=== PATIENT | female | born 1985 | race Two or more races ===

== ENCOUNTER 2020-02-04 04:00 | Inpatient (IN) | payer SELFPAY ==
[~2020-02-04] VITALS: Ht 149.9 cm; Wt 52.6 kg
[~2020-02-04 04:00] MED LIST: ACET325T9 PO; FAMO20TA5 PO; PROC10TA57 PO; TRAM-48 PO
[2020-02-04] MEDS ORDERED: OXYTOCIN 30 UNIT/500 ML PREMIX 500 ML IV ONE (04:44)
[2020-02-04] MEDS ORDERED: LIDOCAINE 1% PF 30 ML VIAL. ONE (04:44)
[2020-02-04 04:46] VITALS: BP 117/58
[2020-02-04] MEDS ORDERED: OXYTOCIN 30 UNIT/500 ML PREMIX 500 ML IV PRN ×2 (05:00)
[2020-02-04] MEDS ORDERED: ONDANSETRON PF 4 MG/2 ML VIAL. IVP PRN (05:00)
[2020-02-04] MEDS ORDERED: 0.9 % SODIUM CHLORIDE 10 ML DISP.SYRIN. IV PRN (05:00)
[2020-02-04] MEDS ORDERED: TERBUTALINE 1 MG/ML VIAL. SQ PRN (05:00)
[2020-02-04] MEDS ORDERED: CITRIC ACID/SODIUM CITRATE 30 ML SOLUTION. PO PRN (05:00)
[2020-02-04] MEDS ORDERED: LIDOCAINE 1% PF 30 ML VIAL. INJ PRN (05:00)
[2020-02-04] MEDS ORDERED: ACETAMINOPHEN 325 MG TABLET. PO PRN (05:00)
[2020-02-04] MEDS ORDERED: IV RINGERS,LACTATED 1000ML 1,000 ML IV SCH (05:00)
[2020-02-04 05:06] LABS: BASO % 0 % (0-3); EOS % 0 % (0-3); HEMATOCRIT 37.5 % (36.0-47.0); LYMPH # 1.6 x10^3/uL (1.0-4.8); LYMPH % 14 % (24-48); MEAN CORPUSCULAR HEMOGLOBIN 31 pg (25-35); MEAN CORPUSCULAR HGB CONC 35 g/dL (31-37); MEAN CORPUSCULAR VOLUME 89 fL (79-100); MONO # 0.9 x10^3/uL (0.0-1.1); MONO % 8 % (0-9); NEUT % 78 % (31-73); PLATELET COUNT 382 x10^3/uL (140-400); RED BLOOD COUNT 4.24 x10^6/uL (3.50-5.40); RED CELL DISTRIBUTION WIDTH 13.9 % (11.5-14.5); WHITE BLOOD COUNT 11.5 x10^3/uL (4.0-11.0)
[2020-02-04 05:11] LABS: BILIRUBIN,URINE NEGATIVE (NEG); CLARITY,URINE CLOUDY; COLOR,URINE YELLOW; NITRITE,URINE NEGATIVE (NEG); PROTEIN,URINE NEGATIVE (NEG-TRACE); UROBILINOGEN,URINE 0.2 mg/dL (0.2 mg/dL)
[2020-02-04 05:18] LABS: BARBITURATES NEG (NEG); BENZODIAZEPINES NEG (NEG); CANNABINOIDS NEG (NEG); COCAINE NEG (NEG); METHADONE NEG (NEG); OPIATES NEG (NEG); PHENCYCLIDINE NEG (NEG)
[2020-02-04 05:19] LABS: BACTERIA,URINE MANY /HPF (0-FEW); RBC,URINE OCC /HPF (0-2); WBC,URINE TNTC /HPF (0-4)
[2020-02-04 05:29] LABS: AMPHETAMINE/METHAMPHETAMINE NEG (NEG)
[2020-02-04] MEDS ORDERED: AMPICILLIN SODIUM 2 GM in IV NORMAL SALINE 100ML 100 ML IV ONE (06:00)
--- NOTE | 2020-02-04 06:28 | PDOC ---
GENERAL General: 34yrs old lady EDC 02/15/20 Admitted to Hospital with Contractions. ALLERGIES Allergies: Allergies Coded Allergies Type Severity Reaction Last Updated Verified No Known Drug Allergies 08/28/15 No LAB Lab: Laboratory Tests Test 02/04/20 04:40 02/04/20 04:45 Urine Collection Type Unknown Urine Color Yellow Urine Clarity Cloudy Urine pH 7.0 (<5.0-8.0) Urine Specific Hooper 1.010 (1.000-1.030) Urine Protein Negative mg/dL (NEG-TRACE) Urine Glucose (UA) Negative mg/dL (NEG) Urine Ketones (Stick) Negative mg/dL (NEG) Urine Blood Trace (NEG) Urine Nitrite Negative (NEG) Urine Bilirubin Negative (NEG) Urine Urobilinogen Dipstick 0.2 mg/dL (0.2 mg/dL) Urine Leukocyte Esterase Large (NEG) Urine RBC Occ /HPF (0-2) Urine WBC Tntc /HPF (0-4) Urine Squamous Epithelial Cells Mod /LPF Urine Bacteria Many /HPF (0-FEW) Urine Mucus Slight /LPF Urine Opiates Screen Neg (NEG) Urine Methadone Screen Neg (NEG) Urine Barbiturates Neg (NEG) Urine Phencyclidine Screen Neg (NEG) Urine Amphetamine/Methamphetamine Neg (NEG) Urine Benzodiazepines Screen Neg (NEG) Urine Cocaine Screen Neg (NEG) Urine Cannabinoids Screen Neg (NEG) Urine Ethyl Alcohol Neg (NEG) White Blood Count 11.5 x10^3/uL (4.0-11.0) H Red Blood Count 4.24 x10^6/uL (3.50-5.40) Hemoglobin 13.0 g/dL (12.0-15.5) Hematocrit 37.5 % (36.0-47.0) Mean Corpuscular Volume 89 fL (79-100) Mean Corpuscular Hemoglobin 31 pg (25-35) Mean Corpuscular Hemoglobin Concent 35 g/dL (31-37) Red Cell Distribution Width 13.9 % (11.5-14.5) Platelet Count 382 x10^3/uL (140-400) Neutrophils (%) (Auto) 78 % (31-73) H Lymphocytes (%) (Auto) 14 % (24-48) L Monocytes (%) (Auto) 8 % (0-9) Eosinophils (%) (Auto) 0 % (0-3) Basophils (%) (Auto) 0 % (0-3) Neutrophils # (Auto) 9.0 x10^3/uL (1.8-7.7) H Lymphocytes # (Auto) 1.6 x10^3/uL (1.0-4.8) Monocytes # (Auto) 0.9 x10^3/uL (0.0-1.1) Eosinophils # (Auto) 0.0 x10^3/uL (0.0-0.7) Basophils # (Auto) 0.0 x10^3/uL (0.0-0.2) Platelet Estimate Pending Laboratory Tests 02/04/20 04:45 ASSESSMENT & PLAN A&P 34 yrs old Lady admitted to Hospital as Patient in Active Labor Almost Complete Dilatation of Cervix. Pt had Vaginal delivery. Justifications for Admission Other Justification CHEN MARTINEZ MD Feb 04, 2020 06:27
[2020-02-04] MEDS ORDERED: DOCUSATE SODIUM 100 MG CAPSULE. PO PRN (06:30)
[2020-02-04] MEDS ORDERED: PHENYLEPH/MINERAL OIL/PETROLAT RECTAL OINTMENT TUBE. RC PRN (06:30)
[2020-02-04] MEDS ORDERED: SIMETHICONE 80 MG TAB.CHEW PO PRN (06:30)
[2020-02-04] MEDS ORDERED: ZOLPIDEM 5 MG TABLET. PO PRN (06:30)
[2020-02-04] MEDS ORDERED: MAGNESIUM HYDROXIDE 2,400 MG/30 ML ORAL.SUSP. PO PRN (06:30)
[2020-02-04] MEDS ORDERED: MAG HYDROX/ALUMINUM HYD/SIMETH 30 ML ORAL.SUSP PO PRN (06:30)
[2020-02-04] MEDS ORDERED: TDaP (Adacel) per PROTOCOL. MC PRN (06:30)
[2020-02-04] MEDS ORDERED: MMR per PROTOCOL. MC PRN (06:30)
[2020-02-04] MEDS ORDERED: diphenhydrAMINE HCL 25 MG CAPSULE PO PRN (06:30)
--- NOTE | 2020-02-04 07:02 | OP ---
DATE OF SURGERY: DELIVERY NOTE This patient is a 34-year-old Frisian lady who is a 2, para 1, EDC 02/15/2020. Came into the hospital with a history of contractions and also the patient in active labor. At the time of admission to the hospital, her cervix was dilated to complete dilatation and vertex presenting. heart tones were 140 per minute and she did have spontaneous vaginal delivery. A live infant delivered at 6:08 a.m. with the score of 8, 9 and 9 without any problem. The baby weighed 5 pounds 7 ounces. Cord blood was taken. Placenta removed spontaneous. No hemorrhage noted. She did receive Pitocin after delivery of the placenta. There was a small superficial laceration of the vulvar area and this was sutured with 2-0 chromic catgut sutures. Estimated blood loss about 100 mL. Mother tolerated the delivery well. No complications at this time. The baby is referred to ble[facility] for further care and treatment. CHEN MARTINEZ MD DR: TORO/hope JOB#: [id number] / [id number]
[2020-02-04 08:00] VITALS: BP 100/52
[2020-02-04 08:10] LABS: % ATYL 1 % (0-0); % BANDS 1 % (0-9); % LYMPHS 14 % (24-48); % MONOS 7 % (0-10); % SEGS 77 % (35-66)
[2020-02-04 08:11] LABS: PLT ESTIMATE ADEQUATE (ADEQUATE)
[2020-02-04 13:00] VITALS: BP 102/54
[2020-02-04] MEDS: IBUPROFEN 400 MG TABLET. PO PRN (15:00)
[2020-02-04 15:20] VITALS: BP 96/61
[2020-02-04] MEDS ORDERED: FLU VACC QS 2020-21(6MOS+)/PF 0.5 ML SYRINGE. VAX IM ONE (19:00)
[2020-02-04 19:15] VITALS: BP 102/63
[2020-02-05 01:00] VITALS: BP 98/57
[2020-02-05 06:00] VITALS: BP 93/52
[2020-02-05] MEDS ORDERED: FERROUS SULFATE 325 MG TABLET. PO SCH (08:00)
[2020-02-05] MEDS ORDERED: FLU VACC QS 2020-21(6MOS+)/PF 0.5 ML SYRINGE. VAX IM ONE (09:15)
[2020-02-05 11:39] VITALS: BP 96/61
--- NOTE | 2020-02-05 13:18 | PDOC ---
GENERAL General: Patient doing ok No Problems. VITAL SIGNS Vital Signs/I&O: Vital Signs Date Time Temp Pulse Resp B/P (MAP) Pulse Ox O2 Delivery O2 Flow Rate FiO2 02/05/20 11:39 98.1 83 20 96/61 (73) 99 98.1 02/05/20 06:00 Room Air ALLERGIES Allergies: Allergies Coded Allergies Type Severity Reaction Last Updated Verified No Known Drug Allergies 08/28/15 No LAB Lab: Laboratory Tests Test 02/05/20 07:17 Hematocrit 32.6 % (36.0-47.0) L Laboratory Tests 02/05/20 07:17 ASSESSMENT & PLAN A&P Vital signs stable. Uterus firm. Lochia Normal. Plan Dismissal in AM tomorrow. Justifications for Admission Other Justification CHEN MARTINEZ MD Feb 05, 2020 13:17
[2020-02-05 17:04] VITALS: BP 92/60
[2020-02-05 22:11] VITALS: BP 106/62
[2020-02-06 05:16] VITALS: BP 98/56
--- NOTE | 2020-02-06 08:48 | PDOC ---
GENERAL General: Patient doing ok. No problems. VITAL SIGNS Vital Signs/I&O: Vital Signs Date Time Temp Pulse Resp B/P (MAP) Pulse Ox O2 Delivery O2 Flow Rate FiO2 02/06/20 05:16 97.9 74 16 98/56 (70) 96 Room Air 97.9 ALLERGIES Allergies: Allergies Coded Allergies Type Severity Reaction Last Updated Verified No Known Drug Allergies 08/28/15 No ASSESSMENT & PLAN A&P Vital signs stable. Patient will go homw today. Justifications for Admission Other Justification CHEN MARTINEZ MD Feb 06, 2020 08:48
[2020-02-06] MEDS: IBUPROFEN 400 MG TABLET. PO PRN (09:05)
[2020-02-06 14:25] VITALS: BP 101/56
--- NOTE | 2020-02-12 15:12 | HP ---
ADMIT DATE: 02/04/2020 CHIEF COMPLAINT AND HISTORY OF PRESENT ILLNESS: This patient is a 34-year-old [place] lady who is a 2, para 1, EDC 02/15/2020, seen in [facility] and came into the hospital with a history of having contractions and the patient in active labor and at the time of admission to the hospital, she was completely dilated cervix. PHYSICAL EXAMINATION: VITAL SIGNS: Being stable. HEAD, EYES, NOSE, THROAT: Within normal limits. LUNGS: Clear. HEART: Sounds regular sinus rhythm. ABDOMEN: Soft, term size uterus. heart tones are 140 per minute, vertex presenting. PELVIC: Showed cervix about almost completely dilated and the vertex presenting, membranes intact. EXTREMITIES: No edema of feet. IMPRESSION: 2, para 1, term . PLAN: Vaginal delivery. CHEN MARTINEZ MD DR: TORO/hope JOB#: [id number] / [id number]
== END 2020-02-06 17:45 | disposition home or self-care (01) | DRG 807 ==
LOC: 3 NORTH 04:00 → UNDOADMOB 04:22 → 3 SO LND 04:22 → 3 NORTH 08:58 → UNDODISOB 02-06 17:45 → EDSTATUS 02-11 09:33
PROVIDERS: ADMIT Obstetrics & Gynecology; ATTEND Obstetrics & Gynecology
PROC: 10E0XZZ Delivery of Products of Conception, External Approach (ICD-10-PCS; principal; 2020-02-04)
PROC: 0HQ9XZZ Repair Perineum Skin, External Approach (ICD-10-PCS; 2020-02-04)
DX: O70.0 First degree perineal laceration during delivery (principal); Z37.0 Single live birth; Z3A.39 39 weeks gestation of pregnancy; Z20.828 Contact with and (suspected) exposure to other viral communicable diseases
CPT/HCPCS: 36415; 80307; 81001; 85007; 85014; 85025; 86592; 86703; 86762; 86850; 86900; 86901; 87077; 87086; 87186; 87340; 87426; 90471; 90686; G0378; G0379; J0290; J2590; J3490; J7120; U0003